=== PATIENT | female | born 1970 | race Caucasian/White ===

== ENCOUNTER 2016-05-31 07:01 | Emergency (ER) | payer OTHER ==
[~2016-05-31 07:01] MED LIST: ALL DAY ALLERGY PO; AMARYL2 PO; ASAB PO; AUG875 PO; AVANDAMET PO; BALSALAZIDE750 MG PO; COLAZAL750 MG PO; CRESTOR10 PO; EXCEDRIN MIGRA1 EAC1 PO; FERROUS SULF325 M1 PO; FLUCON150 PO; GLUCPH PO; INVOKANA100 MG PO; JANUVIA100 MG PO; LEVEMIR SC; LIPITOR10 PO; LORTAB 5 PO; LORTAB10 PO; MAGNESIUM PO; MAGOX4 PO; MERCAPTOPUR50 MG PO; MICARDIS40 PO; MULTIPLE VIT PO; NAP500 PO; ONGLYZA5 MG PO; PR25 PO; PRILO PO; PRILOSEC40 MG PO; PROBIOTIC PO; PROZAC PO; UCERIS9 MG PO; ULTRAM50 PO; VITAMIN C100 MG PO; VITAMIN D31000 UNIT PO; ZOCOR40 PO; ZYRTEC ALLGY10 MG PO; ZYRTEC-D ALG PO
[2016-05-31 08:31] LABS: BASOPHILS 0.6 %; BASOPHILS ABSOLUTE 0.02 10/3/uL (0.0-0.16); EOSINOPHILS ABSOLUTE 0.07 10/3/uL (0.0-0.53); HEMATOCRIT 36.6 % (36.0-48.0); HEMOGLOBIN 11.1 g/dL (12.0-16.0); LYMPHOCYTES 33.5 %; LYMPHOCYTES ABSOLUTE 1.16 10/3/uL (0.67-4.30); MEAN PLATELET VOLUME 9.1 fL (9.2-13.0); MONOCYTES 8.7 %; NEUTROPHILS 55.2 %; NEUTROPHILS ABSOLUTE 1.91 10/3/uL (2.02-8.40); PLATELET COUNT 128 10/3/uL (150-400); WHITE BLOOD CELLS 3.5 10/3/uL (4.5-10.5)
[2016-05-31 08:34] LABS: MANUAL DIFF NO %; MEAN CORPUS HGB CONC 30.3 g/dL (32.0-36.0); MEAN CORPUSCULAR HEMOGLOB 24.1 pg (26.0-34.0); MEAN CORPUSCULAR VOLUME 79.6 fL (80-100); RBC DISTRIBUTION WIDTH 22.1 % (12.0-16.0)
[2016-05-31 08:41] LABS: ASCORBIC ACID (UR NOT ORDER) NEG (NEG); BILIRUBIN, URINE NEGATIVE (NEG); ER URINALYSIS TAT 0 Hrs 14 Mins; KETONE, URINE NEGATIVE (NEG); LEUKOCYTE ESTERASE(NOT OR NEG (NEG); NITRITE (URINE) NEG (NEG); WBC (NOT ORDERED) (RFLEX) 1 (0-5)
[2016-05-31 08:47] LABS: A/G RATIO 0.9 (0.7-1.9); ALBUMIN 3.3 G/DL (3.5-5.0); CALCIUM, SERUM 9.4 MG/DL (8.5-10.4); CHLORIDE, SERUM 109 MMOL/L (96-112); CO2 (CARBON DIOXIDE) 21 MMOL/L (24-34); GFR AFRICAN AMERICAN 120 ML/MIN (>=60); GFR NON AFRICAN AMERICAN 104 ML/MIN (>=60); GLOBULIN 3.5 G/DL (2.5-4.1); SGOT(AST) 61 U/L (5-40); SGPT(ALT) 52 U/L (5-65); SODIUM, SERUM 143 MMOL/L (135-148); TOTAL PROTEIN 6.8 G/DL (6.0-8.5)
[2016-05-31 08:48] LABS: ALKALINE PHOSPHATASE 161 U/L (45-117); ANISOCYTOSIS 1+ (5-10/OIF) (0-5/OIF); BUN (BLOOD UREA NITROGEN) 8 MG/DL (6-23); GLUCOSE, SERUM 185 MG/DL (60-99); PLATELET ESTIMATE SLT DEC (ADEQUATE)
== END 2016-05-31 12:00 | disposition home or self-care (01) ==
LOC: ER 07:01
PROVIDERS: Nurse Practitioner Acute Care
DX: L03.311 Cellulitis of abdominal wall (principal); E11.9 Type 2 diabetes mellitus without complications; Z88.1 Allergy status to other antibiotic agents; Z88.2 Allergy status to sulfonamides; Z88.5 Allergy status to narcotic agent; Z88.8 Allergy status to other drugs, medicaments and biological substances; Z91.048 Other nonmedicinal substance allergy status; Z79.84 Long term (current) use of oral hypoglycemic drugs; Z79.4 Long term (current) use of insulin; Z79.899 Other long term (current) drug therapy
CPT/HCPCS: 74177; 80053; 81001; 83690; 85025; 96374; 99285; A9270-GY; J1170; J2550; Q9967

== ENCOUNTER 2016-06-24 02:14 | Emergency (ER) | payer OTHER ==
[2016-06-24 03:03] LABS: BASOPHILS 0.3 %; BASOPHILS ABSOLUTE 0.02 10/3/uL (0.0-0.16); EOSINOPHILS 0.2 %; EOSINOPHILS ABSOLUTE 0.01 10/3/uL (0.0-0.53); HEMATOCRIT 39.6 % (36.0-48.0); HEMOGLOBIN 12.4 g/dL (12.0-16.0); IMMATURE GRANULOCYTES 0.2 %; LYMPHOCYTES 6.5 %; MEAN CORPUS HGB CONC 31.3 g/dL (32.0-36.0); MEAN CORPUSCULAR HEMOGLOB 25.1 pg (26.0-34.0); MEAN PLATELET VOLUME 9.7 fL (9.2-13.0); MONOCYTES 3.6 %; MONOCYTES ABSOLUTE 0.22 10/3/uL (0.21-1.20); NEUTROPHILS 89.2 %; PLATELET COUNT 139 10/3/uL (150-400); RBC DISTRIBUTION WIDTH 19.4 % (12.0-16.0); RED CELL COUNT 4.95 10/6/uL (4.0-5.6)
[2016-06-24 03:04] LABS: ER CBC TAT 0 Hrs 07 Mins; IMMATURE GRANULOCYTES ABSOLUTE 0.01 10/3/uL (0.0-0.11); MANUAL DIFF NO %; WHITE BLOOD CELLS 6.2 10/3/uL (4.5-10.5)
[2016-06-24 03:18] LABS: A/G RATIO 0.9 (0.7-1.9); ALBUMIN 3.6 G/DL (3.5-5.0); ALKALINE PHOSPHATASE 152 U/L (45-117); CALCIUM, SERUM 8.5 MG/DL (8.5-10.4); CHLORIDE, SERUM 106 MMOL/L (96-112); CO2 (CARBON DIOXIDE) 23 MMOL/L (24-34); CREATININE 0.49 MG/DL (0.55-1.02); GFR AFRICAN AMERICAN 135 ML/MIN (>=60); GFR NON AFRICAN AMERICAN 117 ML/MIN (>=60); GLOBULIN 3.8 G/DL (2.5-4.1); GLUCOSE, SERUM 168 MG/DL (60-99); POTASSIUM, SERUM 3.7 MMOL/L (3.5-5.3); SGOT(AST) 56 U/L (5-40); SGPT(ALT) 49 U/L (5-65); SODIUM, SERUM 142 MMOL/L (135-148); TOTAL PROTEIN 7.4 G/DL (6.0-8.5)
[2016-06-24 03:19] LABS: BUN (BLOOD UREA NITROGEN) 16 MG/DL (6-23); TOTAL BILIRUBIN 4.1 MG/DL (0-1.2)
[2016-06-24 03:20] LABS: ASCORBIC ACID (UR NOT ORDER) NEG (NEG); BILIRUBIN, URINE NEGATIVE (NEG); ER URINALYSIS TAT 0 Hrs 00 Mins; KETONE, URINE 80 MG/DL (NEG); LEUKOCYTE ESTERASE(NOT OR NEG (NEG); NITRITE (URINE) NEG (NEG); WBC (NOT ORDERED) (RFLEX) 2 (0-5)
[2016-06-24 03:32] LABS: ANISOCYTOSIS 1+ (5-10/OIF) (0-5/OIF); BAND NEUTROPHILS 2 %; ER DIFF TAT 0 Hrs 35 Mins; HYPOCHROMIA 1+ (3-10/OIF) (0-2/OIF); LYMPHOCYTES 7 %; LYMPHOCYTES ABSOLUTE (CALC) 0.43 10/3/uL (0.67-4.30); MONOCYTES 4 %; MONOCYTES ABSOLUTE (CALC) 0.25 10/3/uL (0.21-1.20); NEUTROPHILS ABSOLUTE (CALC) 5.52 10/3/uL (2.02-8.40); PLATELET ESTIMATE SLT DEC (ADEQUATE); SEGMENTED NEUTROPHIL (0) 87 %; TOTAL NUCLEATED CELLS 100
== END 2016-06-24 05:56 | disposition home or self-care (01) ==
LOC: ER 02:14
PROVIDERS: Emergency Medicine
DX: K56.7 Ileus, unspecified (principal); E11.9 Type 2 diabetes mellitus without complications; Z88.2 Allergy status to sulfonamides; Z88.8 Allergy status to other drugs, medicaments and biological substances; Z79.4 Long term (current) use of insulin; Z79.899 Other long term (current) drug therapy
CPT/HCPCS: 74176; 80053; 81001; 83690; 85025; 96374; 96375; 99284; J1980; J2550; J2765; J3010